=== PATIENT | female | born 1955 | race African-American/Black ===

== ENCOUNTER → 2016-06-02 | Outpatient (CLI) | payer OTHER | LOC: OD 14:16 | PROVIDERS: ATTEND Physician Assistant | DX: M25.532 Pain in left wrist (principal); M24.032 Loose body in left wrist ==

== ENCOUNTER → 2016-07-22 | Outpatient (CLI) | payer OTHER | LOC: WI 10:11 | PROVIDERS: ATTEND Family Medicine | DX: Z12.31 Encounter for screening mammogram for malignant neoplasm of breast (principal) | CPT/HCPCS: 77067; G0202 ==

== ENCOUNTER → 2017-07-13 | Outpatient (CLI) | payer OTHER ==
--- NOTE | 2017-07-13 10:26 | RADIOLOGY REPORT (SQ) ---
EXAM DESCRIPTION: CHEST PA/LATERAL COMPLETED DATE/TIME: 07/13/2017 10:07 am REASON FOR STUDY: COUGH COMPARISON: None. EXAM PARAMETERS: NUMBER OF VIEWS: two views TECHNIQUE: Digital Frontal and Lateral radiographic views of the chest acquired. RADIATION DOSE: NA LIMITATIONS: none FINDINGS: LUNGS AND PLEURA: There is bilateral lower chest pleural thickening with adjacent bandlike lung parenchymal scarring or atelectasis. Few Beto lines at the right base. This could represent acute interstitial edema or chronic pulmonary fibrosis change. Comparison with old films are outsid e films recommended. If no prior chest films are available then consider chest CT for followup MEDIASTINUM AND HILAR STRUCTURES: No masses or contour abnormalities. HEART AND VASCULAR STRUCTURES: Mild cardiomegaly BONES: No acute findings. HARDWARE: None in the chest. OTHER: No other significant finding. IMPRESSION: Bilateral lower lobe interstitial changes with adjacent pleural thickening. If these fi ndings are acute, this could represent mild interstitial edema. These findings are chronic, this cou ld be related to pulmonary fibrosis. TECHNICAL DOCUMENTATION: JOB ID: [id number] [employer]- All Rights Reserved Reading location - IP/workstation name: [facility]-RR
== END ==
LOC: OD 09:55
PROVIDERS: ATTEND Family Medicine
DX: R05 Cough (principal)
CPT/HCPCS: 71046

== ENCOUNTER → 2017-08-15 | Outpatient (CLI) | payer OTHER ==
--- NOTE | 2017-08-15 11:45 | WOMENS IMAGING REPORT ---
EXAM DESCRIPTION: BILAT SCREENING MAMMO W/CAD COMPLETED DATE/TIME: 08/15/2017 9:36 am REASON FOR STUDY: SCREENING MAMMO Z12.31 ENCNTR SCREEN MAMMOGRAM FOR MALIGNANT NEOPLASM OF LUCI COMPARISON: [id number] TECHNIQUE: Standard craniocaudal and mediolateral oblique views of each breast recorded using digita l acquisition. LIMITATIONS: None. FINDINGS: No masses, calcifications or architectural distortion. No areas of suspicion. Read with the assistance of CAD. .[facility] - R2 Cenova Version 1.3 .[facility] - R2 Cenova Version 1.3 .[facility] - R2 Cenova Version 2.4 .[facility] - R2 Cenova Version 2.4 .[facility] - R2 [employer] Operator Version 9.2 IMPRESSION: NORMAL MAMMOGRAM. BIRADS 1. BREAST DENSITY: a. The breasts are almost entirely fatty. BIRAD: 1 NEGATIVE RECOMMENDATION: ROUTINE SCREENING COMMENT: The patient has been notified of the results by letter per SA requirements. Additional no tification policies are in place for contacting patient with suspicious or incomplete findings. Quality ID #[id number]: The [employer] recommends an annual screening mammogram for women aged 40 years or over. This facility utilizes a reminder system to ensure that all patients receive reminder letters, and/or direct phone calls for appointments. This includes reminders for routine scr eening mammograms, diagnostic mammograms, or other Breast Imaging Interventions when appropriate. Th is patient will be placed in the appropriate reminder system. The [employer] ([employer]) has developed recommendations for screening MRI of the breast s in certain patient populations, to be used in conjunction with mammography. Breast MRI surveillanc e may be appropriate for women with more than 20% lifetime risk of developing breast cancer as deter mined by genetic testing, significant family history of the disease, or history of mantle radiation f or Hodgkins Disease. ACR Practice Guidelines 2008. TECHNICAL DOCUMENTATION: FINDING NUMBER: (1) ASSESSMENT: (1) JOB ID: [id number] [email or web address]- All Rights Reserved Reading location - IP/workstation name: [facility]-[email or web address]
== END ==
LOC: WI 09:24
PROVIDERS: ATTEND Family Medicine
DX: Z12.31 Encounter for screening mammogram for malignant neoplasm of breast (principal)
CPT/HCPCS: 77067

== ENCOUNTER → 2019-03-30 | Outpatient (CLI) | payer OTHER | LOC: OD 14:01 | PROVIDERS: ATTEND Nurse Practitioner Family | DX: M25.562 Pain in left knee (principal) | CPT/HCPCS: 36415; 84550 ==

== ENCOUNTER 2019-04-19 10:25 | Observation (INO) | payer OTHER ==
[2019-04-19 11:32] LABS: VENOUS BLOOD BASE EXCESS 1.4 mmol/L; VENOUS BLOOD HCO3 24.4 mmol/L (20-32); VENOUS BLOOD PH 7.47 (7.30-7.42)
[2019-04-19 11:36] LABS: HEMATOCRIT 38.3 % (36.0-47.0); HEMOGLOBIN 12.9 g/dL (12.0-15.5); MEAN CORPUSCULAR HEMOGLOBIN 29.5 pg (27.0-33.4); MEAN CORPUSCULAR HGB CONC 33.6 g/dL (32.0-36.0); MEAN CORPUSCULAR VOLUME 88 fl (80-97); PLATELET COUNT 222 10^3/uL (150-450); RED BLOOD COUNT 4.37 10^6/uL (3.72-5.28); RED CELL DISTRIBUTION WIDTH 14.8 % (11.5-14.0); WHITE BLOOD COUNT 20.3 10^3/uL (4.0-10.5)
[2019-04-19 11:47] LABS: INTERNATIONAL RATION (INR) 1.41; PROTHROMBIN TIME 17.4 SEC (11.4-15.4)
[2019-04-19 11:52] LABS: ALBUMIN 3.6 g/dL (3.5-5.0); ALKALINE PHOSPHATASE 83 U/L (38-126); ANION GAP 13 (5-19); ASPARTATE AMINO TRANSFERASE 34 U/L (14-36); BILIRUBIN,DIRECT 1.2 mg/dL (0.0-0.4); BILIRUBIN,TOTAL 2.1 mg/dL (0.2-1.3); BLOOD UREA NITROGEN 23 mg/dL (7-20); CALCIUM 9.1 mg/dL (8.4-10.2); CARBON DIOXIDE 25 mmol/L (22-30); CHLORIDE 100 mmol/L (98-107); GLUCOSE 213 mg/dL (75-110); POTASSIUM 3.6 mmol/L (3.6-5.0)
[2019-04-19 12:17] LABS: ABSOLUTE LYMPHOCYTES# (MANUAL) 0.8 10^3/uL (0.5-4.7); ABSOLUTE MONOCYTES # (MANUAL) 1.8 10^3/uL (0.1-1.4); BAND NEUTROPHILS % (MANUAL) 1 % (3-5); BASOPHILS % (MANUAL) 0 % (0-2); EOSINOPHILS % (MANUAL) 0 % (0-6); LYMPHOCYTES % (MANUAL) 4 % (13-45); MONOCYTES % (MANUAL) 9 % (3-13); SEGMENTED NEUTROPHILS % (MAN) 86 % (42-78); TOTAL CELLS COUNTED 100
[2019-04-19 12:18] LABS: ANISOCYTOSIS SLIGHT; PLATELET COMMENT ADEQUATE; PLATELET LARGE PRESENT; POLYCHROMASIA SLIGHT
[2019-04-19 12:19] LABS: HYPOCHROMASIA SLIGHT
[2019-04-19] MEDS ORDERED: KETOROLAC TROMETHAMINE INJ/PF 30 MG/1 ML SDV IV ONE (12:24)
[2019-04-19] MEDS ORDERED: METHYLPREDNISOLONE INJ 125 MG/2 ML SDV IV ONE (12:24)
[2019-04-19] MEDS ORDERED: NORMAL SALINE 1000 ML 1,000 ML IV ONE (12:24)
[2019-04-19] MEDS ORDERED: IPRATROPIUM/ALBUTEROL 0.5-2.5 MG/3 ML AMPUL NEB ONE (12:25)
[2019-04-19 12:39] LABS: CREATINE KINASE 324 U/L (30-135)
--- NOTE | 2019-04-19 13:02 | ER Document Report ---
Entered by MIRELA NAIR SCRIBE 04/19/19 1221 Acting as scribe for:DALIA GALO MD ED General - General Chief Complaint: Shortness Of Breath Stated Complaint: FEVER Time Seen by Provider: 04/19/19 12:14 Mode of Arrival: Medic Information source: Patient Notes: This 64 year old female patient brought in by EMS from [facility] presents to the ED today with complaints of shortness of breath and flu-like symptoms for the past x2 days. Patient received tylenol and 1 DuoNeb treatment at [facility] for her symptoms around 9:00 AM prior to EMS arrival. Patient notes that the DuoNeb helped her breathing. Patient reports a productive cough, fever, and body aches. Patient states that she has reproducible chest pain when she coughs and brings up "tinges of blood" in her sputum. Patient denies receiving a flu shot this year. TRAVEL OUTSIDE OF THE [place] IN LAST 30 DAYS: No - Related Data Allergies/Adverse Reactions: No Known Allergies Allergy (Verified 04/19/19 12:22) Past Medical History - General Information source: Patient - Social History Smoking Status: Unknown if Ever Smoked Cigarette use (# per day): No Chew tobacco use (# tins/day): No Smoking Education Provided: No Frequency of alcohol use: None Drug Abuse: None Family History: Reviewed & Not Pertinent Patient has suicidal ideation: No Patient has homicidal ideation: No Past Surgical History: Reports: Hx Hysterectomy Review of Systems - Review of Systems Constitutional: See HPI, Fever EENT: No symptoms reported Cardiovascular: See HPI, Chest pain - reproducible Respiratory: See HPI, Cough, Short of breath, Sputum Gastrointestinal: No symptoms reported Genitourinary: No symptoms reported Female Genitourinary: No symptoms reported Musculoskeletal: See HPI, Other - Body aches Skin: No symptoms reported Hematologic/Lymphatic: No symptoms reported Neurological/Psychological: No symptoms reported -: Yes All other systems reviewed and negative Physical Exam - Vital signs Vitals: Pulse Ox 100 04/19/19 10:30 Interpretation: Normal - General General appearance: Alert In distress: None - HEENT Head: Normocephalic, Atraumatic Eyes: Normal Pupils: PERRL Sinus: Other - Congestion Nasal: Clear rhinorrhea - Respiratory Respiratory status: Tachypnea Chest status: Nontender Breath sounds: Rhonchi - worse in L lung, Wheezing - worse in L lung Chest palpation: Normal - Cardiovascular Rhythm: Regular Heart sounds: Normal auscultation Murmur: No - Abdominal Inspection: Normal Distension: No distension Bowel sounds: Normal Tenderness: Nontender Organomegaly: No organomegaly - Back Back: Normal, Nontender - Extremities General upper extremity: Normal inspection General lower extremity: Normal inspection - Neurological Neuro grossly intact: Yes - Psychological Associated symptoms: Normal affect, Normal mood - Skin Skin Temperature: Warm Skin Moisture: Dry Skin Color: Normal Course - Re-evaluation Re-evalutation: 04/19/19 13:55 The patient states her breathing feels better with the nebulizer treatments. - Vital Signs Vital signs: Temp Pulse Resp BP Pulse Ox 98.4 F 22 H 122/67 100 04/19/19 13:25 04/19/19 14:46 04/19/19 14:46 04/19/19 14:46 - Laboratory Result Diagrams: 04/19/19 11:05 04/19/19 11:05 Laboratory results interpreted by me: 04/19/19 04/19/19 04/19/19 10:51 11:05 11:05 WBC 20.3 H RDW 14.8 H Seg Neuts % (Manual) 86 H Band Neutrophils % 1 L Lymphocytes % (Manual) 4 L Abs Neuts (Manual) 17.7 H Abs Monocytes (Manual) 1.8 H PT 17.4 H VBG pH VBG pCO2 BUN Creatinine Est GFR ( Amer) Est GFR (MDRD) Non-Af Glucose POC Glucose 220 H Hemoglobin A1c % Total Bilirubin Direct Bilirubin Creatine Kinase 04/19/19 04/19/19 04/19/19 11:05 11:05 11:05 WBC RDW Seg Neuts % (Manual) Band Neutrophils % Lymphocytes % (Manual) Abs Neuts (Manual) Abs Monocytes (Manual) PT VBG pH 7.47 H VBG pCO2 34.0 L BUN 23 H Creatinine 1.32 H Est GFR ( Amer) 49 L Est GFR (MDRD) Non-Af 41 L Glucose 213 H POC Glucose Hemoglobin A1c % Total Bilirubin 2.1 H Direct Bilirubin 1.2 H Creatine Kinase 324 H 04/19/19 11:05 WBC RDW Seg Neuts % (Manual) Band Neutrophils % Lymphocytes % (Manual) Abs Neuts (Manual) Abs Monocytes (Manual) PT VBG pH VBG pCO2 BUN Creatinine Est GFR ( Amer) Est GFR (MDRD) Non-Af Glucose POC Glucose Hemoglobin A1c % 6.7 H Total Bilirubin Direct Bilirubin Creatine Kinase - Diagnostic Test Radiology reviewed: Image reviewed, Reports reviewed - CXR--Extensive opacity of the left lower lobe - EKG Interpretation by Me EKG shows normal: Sinus rhythm, Chase, Intervals, QRS Complexes, ST-T Waves Rate: Tachycardia - 125 Rhythm: A.Flutter - Ventricular bigeminy P Waves: LAE Discharge - Discharge Clinical Impression: Tachycardia, Extrasystoles bigeminal Pneumonia Qualifiers: Pneumonia type: due to unspecified organism Laterality: left Lung location: lower lobe of lung Qualified Code(s): J18.9 - Pneumonia, unspecified organism Fever Qualifiers: Fever type: unspecified Qualified Code(s): R50.9 - Fever, unspecified Leukocytosis Qualifiers: Leukocytosis type: unspecified Qualified Code(s): D72.829 - Elevated white blood cell count, unspecified Condition: Good Disposition: ADMITTED INPATIENT Admitting Provider: Jerica (Hospitalist) Unit Admitted: Telemetry Scribe Attestation: 04/19/19 13:43 I personally performed the services described in the documentation, reviewed and edited the documentation which was dictated to the scribe in my presence, and it accurately records my words and actions. I personally performed the services described in the documentation, reviewed and edited the documentation which was dictated to the scribe in my presence, and it accurately records my words and actions.
--- NOTE | 2019-04-19 13:06 | RADIOLOGY REPORT (SQ) ---
EXAM DESCRIPTION: CHEST 2 VIEWS COMPLETED DATE/TIME: 04/19/2019 12:54 pm REASON FOR STUDY: Flulike illness, bloody sputum, wheezes rhonchi. COMPARISON: None. EXAM PARAMETERS: NUMBER OF VIEWS: two views TECHNIQUE: Digital Frontal and Lateral radiographic views of the chest acquired. RADIATION DOSE: NA LIMITATIONS: none FINDINGS: LUNGS AND PLEURA: Extensive heterogeneous opacity of the left lower lobe. MEDIASTINUM AND HILAR STRUCTURES: No masses or contour abnormalities. HEART AND VASCULAR STRUCTURES: Cardiomegaly. BONES: No acute findings. HARDWARE: None in the chest. OTHER: No other significant finding. IMPRESSION: Extensive heterogeneous opacity of the left lower lobe, concerning for infection or aspi ration. Recommend follow-up radiographs in 6 to 8 weeks to ensure complete radiographic resolution. TECHNICAL DOCUMENTATION: JOB ID: [id number] [employer]- All Rights Reserved Reading location - IP/workstation name: [email or web address]
[2019-04-19] MEDS ORDERED: RINGERS SOLUTION,LACTATED 1,000 ML IV ONE (13:42)
[2019-04-19] MEDS ORDERED: LEVOFLOXACIN 750 MG/D5W RTU 750 MG/150 ML RTUPB IV ONE (13:52)
[2019-04-19 14:27] LABS: A TYPE INFLUENZA AG NEGATIVE (NEGATIVE); B INFLUENZA AG NEGATIVE (NEGATIVE)
[2019-04-19] MEDS ORDERED: MAGNESIUM HYDROXIDE SUSP 30 ML UDCUP PO PRN (16:10)
[2019-04-19] MEDS ORDERED: PROMETHAZINE HCL INJ 25 MG/1 ML VIAL IV PRN (16:10)
[2019-04-19] MEDS ORDERED: TEMAZEPAM 7.5 MG CAPSULE PO PRN (16:10)
--- NOTE | 2019-04-19 16:24 | EKG REPORT ---
SEVERITY:- ABNORMAL ECG - SINUS TACHYCARDIA VENTRICULAR BIGEMINY PROBABLE LEFT ATRIAL ABNORMALITY : Confirmed by: Jenny Guadarrama MD 19-Apr-2019 16:24:07
[2019-04-19] MEDS ORDERED: GLUCAGON,HUMAN RECOMB 1 MG INJ IM PRN (16:29)
[2019-04-19] MEDS ORDERED: DEXTROSE 50%-WATER 25 GM/50 ML DISP.SYRIN IV PRN ×2 (16:29)
[2019-04-19] MEDS ORDERED: DEXTROSE 40% GEL 15 GM TUBE PO PRN ×2 (16:29)
--- NOTE | 2019-04-19 16:34 | PDOC H&P ---
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 Stating that at her work several patient has had diarrhea. Denies any chest pain, abdominal pain, vomiting, lightheadedness, numbness, tingling, orthopnea, PND, weight changes, lower extremity edema. Past Medical History Endocrine Medical History: Reports: Diabetes Mellitus Type 2 Past Surgical History Past Surgical History: Reports: Hysterectomy Social History Smoking Status: Unknown if Ever Smoked Family History Family History: Reviewed & Not Pertinent Parental Family History Reviewed: Yes Children Family History Reviewed: Yes Sibling(s) Family History Reviewed.: Yes Medication/Allergy Allergies/Adverse Reactions: No Known Allergies Allergy (Verified 04/19/19 12:22) Physical Exam Vital Signs: Temp Pulse Resp BP Pulse Ox 98.4 F 22 H 122/67 100 04/19/19 13:25 04/19/19 14:46 04/19/19 14:46 04/19/19 14:46 Intake & Output 04/18/19 04/19/19 04/20/19 06:59 06:59 06:59 Intake Total 1000 Balance 1000 Weight 99 kg General appearance: PRESENT: no acute distress, morbidly obese, well-developed, well-nourished Respiratory exam: PRESENT: crackles - Left lung base.. ABSENT: rales, rhonchi, wheezes Pulses: PRESENT: normal carotid pulses, normal radial pulses, normal dorsalis pedis pul, +2 pedal pulses bilateral Vascular exam: PRESENT: normal capillary refill GI/Abdominal exam: PRESENT: normal bowel sounds, soft. ABSENT: distended, guarding, mass, organolmegaly, rebound, tenderness Extremities exam: PRESENT: full ROM. ABSENT: calf tenderness, clubbing, pedal edema Neurological exam: PRESENT: alert, awake, oriented to person, oriented to place, oriented to time, oriented to situation, CN II-XII grossly intact. ABSENT: motor sensory deficit Skin exam: PRESENT: dry, intact, warm. ABSENT: cyanosis, rash Results Laboratory Results: 04/19/19 11:05 04/19/19 11:05 04/19/19 04/19/19 04/19/19 11:05 11:05 11:05 WBC 20.3 H RBC 4.37 Hgb 12.9 Hct 38.3 MCV 88 MCH 29.5 MCHC 33.6 RDW 14.8 H Plt Count 222 Seg Neutrophils % Not Reportable VBG pH 7.47 H VBG pCO2 34.0 L VBG HCO3 24.4 VBG Base Excess 1.4 Sodium 138.2 Potassium 3.6 Chloride 100 Carbon Dioxide 25 Anion Gap 13 BUN 23 H Creatinine 1.32 H Est GFR ( Amer) 49 L Glucose 213 H Lactic Acid Calcium 9.1 Total Bilirubin 2.1 H AST 34 Alkaline Phosphatase 83 Total Protein 7.0 Albumin 3.6 04/19/19 04/19/19 11:05 14:25 WBC RBC Hgb Hct MCV MCH MCHC RDW Plt Count Seg Neutrophils % VBG pH VBG pCO2 VBG HCO3 VBG Base Excess Sodium Potassium Chloride Carbon Dioxide Anion Gap BUN Creatinine Est GFR ( Amer) Glucose Lactic Acid 1.5 1.9 Calcium Total Bilirubin AST Alkaline Phosphatase Total Protein Albumin 04/19/19 04/19/19 11:05 11:05 Creatine Kinase 324 H Troponin I < 0.012 Impressions: Chest X-Ray 04/19/19 12:25 IMPRESSION: Extensive heterogeneous opacity of the left lower lobe, concerning for infection or aspiration. Recommend follow-up radiographs in 6 to 8 weeks to ensure complete radiographic resolution. Assessment and Plan - Diagnosis (1) Pneumonia Qualifiers: Pneumonia type: due to unspecified organism Laterality: left Lung location: lower lobe of lung Qualified Code(s): J18.9 - Pneumonia, unspecified organism Is this a current diagnosis for this admission?: Yes Plan: Presenting with tachypnea, leukocytosis, neutrophilia and bandemia. Chest x-ray left lower lobe opacity. Likely healthcare associated pneumonia. Patient works at the fci. We will start on empiric broad-spectrum IV antibiotics to cover gram-negative rods, and gram-positive cocci including MRSA. (2) Obesity (BMI 30.0-34.9) Is this a current diagnosis for this admission?: Yes Plan: BMI 31.3. Diet and lifestyle modification recommended. We will check TSH, T4 and lipid panel. (3) Newly diagnosed diabetes Is this a current diagnosis for this admission?: Yes Plan: Newly diagnosed diabetes. Hemoglobin is 6.7. Admitting diet, sliding scale insulin, Accu-Chek, hypoglycemia protocol. Diabetes occasion. Will discharge on metformin to be uptitrated as tolerated if kidney function improves. (4) KENNY (acute kidney injury) Is this a current diagnosis for this admission?: Yes Plan: Likely due to chronic NSAID abuse (patient has been taking Motrin chronically for knee osteoarthritis), and dehydration caused by recent diarrhea. Cautious volume restriction guided by volume status and electrolytes. Avoid nephrotoxic meds. Monitor and now. Will consult nephrology if no improvement. (5) Tobacco abuse Is this a current diagnosis for this admission?: Yes Plan: Counseled on quitting. NicoDerm patch will be provided. (6) Extrasystoles bigeminal Is this a current diagnosis for this admission?: Yes Plan: Denies any history of palpitation, chest pain, lightheadedness, syncope or pres yncope. Troponins negative. Admit to telemetry. Will consult cardiology if no improvement.
[2019-04-19 16:58] LABS: CHOLESTEROL 108.38 mg/dL (0-200); TRIGLYCERIDES 102 mg/dL (<150)
[2019-04-19 17:09] LABS: DIRECT LDL 62 mg/dL (<100)
[2019-04-19 17:15] LABS: FREE T4 (FREE THYROXINE) 1.77 ng/dL (0.78-2.19)
[2019-04-19 17:29] LABS: THYROID STIMULATING HORMONE 1.72 uIU/mL (0.47-4.68)
[2019-04-19] MEDS: PANTOPRAZOLE SODIUM 40 MG TABLET.DR PO SCH (17:55)
[2019-04-19] MEDS ORDERED: INFLUENZA QUAD (6MOS+) 2019-20 VAC 0.5 ML SYR IM ONE (18:27)
[2019-04-19] MEDS: CEFTRIAXONE 1 GM/D5W RTU 1 GM/50 ML RTUPB IV SCH (18:55)
[2019-04-19] MEDS: NORMAL SALINE 1000 ML 1,000 ML IV PRN (18:56)
[2019-04-19] MEDS: INSULIN LISPRO 100 UNIT/ML 3 ML VIAL SUBCUT SCH (21:14)
[2019-04-19] MEDS: HEPARIN SOD (PORCINE) 5,000 UNIT/ML 1 ML VIAL SUBCUT SCH (21:14)
[2019-04-20 02:13] LABS: APPEARANCE,URINE SLIGHTLY-CLOUDY; BILIRUBIN,URINE NEGATIVE (NEGATIVE); COLOR,URINE YELLOW; GLUCOSE, URINE 150 mg/dL (NEGATIVE); KETONES,URINE NEGATIVE (NEGATIVE); LEUKOCYTE ESTERASE,URINE SMALL (NEGATIVE); NITRITE,URINE NEGATIVE (NEGATIVE); PROTEIN,URINE NEGATIVE (NEGATIVE); URINE SPECIFIC GRAVITY 1.019
[2019-04-20] MEDS: NORMAL SALINE 1000 ML 1,000 ML IV PRN ×2 (03:54→17:22)
[2019-04-20] MEDS: PANTOPRAZOLE SODIUM 40 MG TABLET.DR PO SCH ×2 (05:20→17:21)
[2019-04-20] MEDS: HEPARIN SOD (PORCINE) 5,000 UNIT/ML 1 ML VIAL SUBCUT SCH ×3 (05:20→21:25)
[2019-04-20 06:16] LABS: HEMATOCRIT 35.2 % (36.0-47.0); HEMOGLOBIN 11.8 g/dL (12.0-15.5); MEAN CORPUSCULAR HEMOGLOBIN 29.3 pg (27.0-33.4); MEAN CORPUSCULAR HGB CONC 33.4 g/dL (32.0-36.0); MEAN CORPUSCULAR VOLUME 88 fl (80-97); PLATELET COUNT 207 10^3/uL (150-450); RED BLOOD COUNT 4.01 10^6/uL (3.72-5.28); RED CELL DISTRIBUTION WIDTH 15.1 % (11.5-14.0); WHITE BLOOD COUNT 16.4 10^3/uL (4.0-10.5)
[2019-04-20 06:19] LABS: ALBUMIN 2.9 g/dL (3.5-5.0); ALKALINE PHOSPHATASE 70 U/L (38-126); ANION GAP 10 (5-19); ASPARTATE AMINO TRANSFERASE 24 U/L (14-36); BILIRUBIN,DIRECT 0.5 mg/dL (0.0-0.4); BILIRUBIN,TOTAL 0.7 mg/dL (0.2-1.3); BLOOD UREA NITROGEN 24 mg/dL (7-20); CALCIUM 8.8 mg/dL (8.4-10.2); CARBON DIOXIDE 25 mmol/L (22-30); CHLORIDE 105 mmol/L (98-107); GLUCOSE 250 mg/dL (75-110); POTASSIUM 3.7 mmol/L (3.6-5.0)
[2019-04-20 06:46] LABS: ABSOLUTE LYMPHOCYTES# (MANUAL) 1.1 10^3/uL (0.5-4.7); ABSOLUTE MONOCYTES # (MANUAL) 0.2 10^3/uL (0.1-1.4); BASOPHILS % (MANUAL) 0 % (0-2); EOSINOPHILS % (MANUAL) 0 % (0-6); LYMPHOCYTES % (MANUAL) 7 % (13-45); MONOCYTES % (MANUAL) 1 % (3-13); SEGMENTED NEUTROPHILS % (MAN) 92 % (42-78); TOTAL CELLS COUNTED 100
[2019-04-20 06:48] LABS: OVALOCYTES SLIGHT; PLATELET COMMENT ADEQUATE; POIKILOCYTOSIS SLIGHT; SCHISTOCYTES SLIGHT; TOXIC GRANULATION 1+
[2019-04-20] MEDS: INSULIN LISPRO 100 UNIT/ML 3 ML VIAL SUBCUT SCH ×4 (09:25→21:25)
[2019-04-20] MEDS: LEVOFLOXACIN 500 MG/D5W RTU 500 MG/100 ML RTUPB IV SCH (13:32)
[2019-04-20] MEDS: CEFTRIAXONE 1 GM/D5W RTU 1 GM/50 ML RTUPB IV SCH (17:21)
[2019-04-21] MEDS: HEPARIN SOD (PORCINE) 5,000 UNIT/ML 1 ML VIAL SUBCUT SCH ×3 (05:54→22:22)
[2019-04-21] MEDS: PANTOPRAZOLE SODIUM 40 MG TABLET.DR PO SCH ×2 (05:54→18:31)
[2019-04-21] MEDS: ACETAMINOPHEN 325 MG TABLET PO PRN ×2 (08:16→18:31)
[2019-04-21] MEDS: NORMAL SALINE 1000 ML 1,000 ML IV PRN ×2 (08:17→18:34)
[2019-04-21 09:08] LABS: ALBUMIN 3.1 g/dL (3.5-5.0); ALKALINE PHOSPHATASE 68 U/L (38-126); ANION GAP 8 (5-19); ASPARTATE AMINO TRANSFERASE 36 U/L (14-36); BILIRUBIN,DIRECT 0.3 mg/dL (0.0-0.4); BILIRUBIN,TOTAL 0.5 mg/dL (0.2-1.3); BLOOD UREA NITROGEN 22 mg/dL (7-20); CARBON DIOXIDE 27 mmol/L (22-30); CHLORIDE 109 mmol/L (98-107); GLUCOSE 109 mg/dL (75-110); POTASSIUM 3.6 mmol/L (3.6-5.0); TOTAL PROTEIN 6.2 g/dL (6.3-8.2)
[2019-04-21] MEDS: INSULIN LISPRO 100 UNIT/ML 3 ML VIAL SUBCUT SCH ×4 (09:12→22:20)
[2019-04-21 09:22] LABS: ABSOLUTE LYMPHOCYTES (AUTO) 1.8 10^3/uL (0.5-4.7); ABSOLUTE MONOCYTES (AUTO) 0.9 10^3/uL (0.1-1.4); ABSOLUTE NEUT (AUTO) 13.1 10^3/uL (1.7-8.2); BASOPHILS % (AUTO) 0.3 % (0-2); EOSINOPHILS % (AUTO) 0.1 % (0-6); HEMATOCRIT 35.1 % (36.0-47.0); HEMOGLOBIN 11.8 g/dL (12.0-15.5); LYMPHOCYTES % (AUTO) 11.4 % (13-45); MEAN CORPUSCULAR HEMOGLOBIN 29.2 pg (27.0-33.4); MEAN CORPUSCULAR HGB CONC 33.6 g/dL (32.0-36.0); MEAN CORPUSCULAR VOLUME 87 fl (80-97); MONOCYTES % (AUTO) 5.5 % (3-13); PLATELET COUNT 262 10^3/uL (150-450); RED BLOOD COUNT 4.03 10^6/uL (3.72-5.28); RED CELL DISTRIBUTION WIDTH 15.2 % (11.5-14.0); SEGMENTED NEUTROPHILS % (AUTO) 82.7 % (42-78); TOTAL CELLS COUNTED % (AUTO) 100 %; WHITE BLOOD COUNT 15.8 10^3/uL (4.0-10.5)
--- NOTE | 2019-04-21 11:32 | PDOC PROGRESS REPORT ---
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 Stating that at her work several patient has had diarrhea. Denies any chest pain, abdominal pain, vomiting, lightheadedness, numbness, tingling, orthopnea, PND, weight changes, lower extremity edema. 04/20/2018. No acute events overnight. Still with significant leukocytosis and shortness of breath. Crackles on right lung base. Complaining of productive cough. Denies any chest pain, nausea, vomiting, diarrhea, constipation or any urinary symptoms. Reason For Visit: PNEUMONIA Physical Exam Vital Signs: Temp Pulse Resp BP Pulse Ox 97.8 F 80 18 135/82 H 94 04/21/19 08:00 04/21/19 08:00 04/21/19 08:00 04/21/19 08:00 04/21/19 08:00 Intake & Output 04/20/19 04/21/19 04/22/19 06:59 06:59 06:59 Intake Total 3440 3500 Output Total 500 Balance 2940 3500 Weight 98.6 kg 101.6 kg General appearance: PRESENT: obese Respiratory exam: PRESENT: crackles - RLB. ABSENT: rales, rhonchi, wheezes Cardiovascular exam: PRESENT: RRR. ABSENT: diastolic murmur, rubs, systolic murmur GI/Abdominal exam: PRESENT: normal bowel sounds, soft. ABSENT: distended, guarding, mass, organolmegaly, rebound, tenderness Neurological exam: PRESENT: alert, awake, oriented to person, oriented to place, oriented to time, oriented to situation, CN II-XII grossly intact. ABSENT: motor sensory deficit Results Laboratory Results: 04/21/19 08:09 04/21/19 08:09 04/21/19 04/21/19 08:09 08:09 WBC 15.8 H RBC 4.03 Hgb 11.8 L Hct 35.1 L MCV 87 MCH 29.2 MCHC 33.6 RDW 15.2 H Plt Count 262 Seg Neutrophils % 82.7 H Sodium 143.7 Potassium 3.6 Chloride 109 H Carbon Dioxide 27 Anion Gap 8 BUN 22 H Creatinine 0.85 Est GFR ( Amer) > 60 Glucose 109 Calcium 9.0 Total Bilirubin 0.5 AST 36 Alkaline Phosphatase 68 Total Protein 6.2 L Albumin 3.1 L 04/19/19 11:05 Blood Blood Culture (PCR) - Final Streptococcus Pneumoniae 04/19/19 11:57 Blood Blood Culture (PCR) - Final Streptococcus Pneumoniae 04/19/19 14:50 Sputum Gram Stain - Final 04/19/19 14:50 Sputum Sputum Culture - Final 04/19/19 04/19/19 11:05 11:05 Creatine Kinase 324 H Troponin I < 0.012 Impressions: Chest X-Ray 04/19/19 12:25 IMPRESSION: Extensive heterogeneous opacity of the left lower lobe, concerning for infection or aspiration. Recommend follow-up radiographs in 6 to 8 weeks to ensure complete radiographic resolution. Assessment and Plan - Diagnosis (1) Pneumonia Qualifiers: Pneumonia type: due to unspecified organism Laterality: left Lung location: lower lobe of lung Qualified Code(s): J18.9 - Pneumonia, unspecified organism Is this a current diagnosis for this admission?: Yes Plan: Moderate improvement. Leukocytosis improving. Afebrile. Chest x-ray left lower lobe opacity. Likely healthcare associated pneumonia. Patient works at the long-[employer]. Day 2 IV antibiotics. Day 2 IV ceftriaxone. Day 2 IV levofloxacin. Continue empiric broad-spectrum IV antibiotics to cover gram-negative rods, and gram-positive cocci including MRSA. Blood cultures growing gram-positive cocci in chains. Pending sensitivity. (2) Obesity (BMI 30.0-34.9) Is this a current diagnosis for this admission?: Yes Plan: BMI 31.3. Diet and lifestyle modification recommended. TSH and lipid panel WNL except for low HDL. (3) Newly diagnosed diabetes Is this a current diagnosis for this admission?: Yes Plan: Newly diagnosed diabetes. Hemoglobin is 6.7. Admitting diet, sliding scale insulin, Accu-Chek, hypoglycemia protocol. Diabetes occasion. Will discharge on metformin to be uptitrated as tolerated if kidney function improves. (4) KENNY (acute kidney injury) Is this a current diagnosis for this admission?: Yes Plan: Resolved. Likely due to chronic NSAID abuse (patient has been taking Motrin chronically for knee osteoarthritis), and dehydration caused by recent diarrhea. Cautious volume restriction guided by volume status and electrolytes. Avoid nephrotoxic meds. Monitor and now. Will consult nephrology if no improvement. (5) Tobacco abuse Is this a current diagnosis for this admission?: Yes Plan: Counseled on quitting. NicoDerm patch will be provided. (6) Extrasystoles bigeminal Is this a current diagnosis for this admission?: Yes Plan: Denies any history of palpitation, chest pain, lightheadedness, syncope or presyncope. Troponins negative. Admit to telemetry. Will consult cardiology if no improvement. (7) Diarrhea Qualifiers: Diarrhea type: unspecified type Qualified Code(s): R19.7 - Diarrhea, unspecified Is this a current diagnosis for this admission?: Yes Plan: Resolved. Likely gastroenteritis. Benign abdominal examination.
--- NOTE | 2019-04-21 11:35 | PDOC PROGRESS REPORT ---
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 Stating that at her work several patient has had diarrhea. Denies any chest pain, abdominal pain, vomiting, lightheadedness, numbness, tingling, orthopnea, PND, weight changes, lower extremity edema. 04/20/2018. No acute events overnight. Still with significant leukocytosis and shortness of breath. Crackles on right lung base. Complaining of productive cough. Denies any chest pain, nausea, vomiting, diarrhea, constipation or any urinary symptoms. 04/21/2019. No acute events overnight. Leukocytosis improving. Still complaining of productive cough. Denies any fever, chills, nausea, vomiting, diarrhea, constipation or urinary symptoms Reason For Visit: PNEUMONIA Physical Exam Vital Signs: Temp Pulse Resp BP Pulse Ox 97.8 F 80 18 135/82 H 94 04/21/19 08:00 04/21/19 08:00 04/21/19 08:00 04/21/19 08:00 04/21/19 08:00 Intake & Output 04/20/19 04/21/19 04/22/19 06:59 06:59 06:59 Intake Total 3440 3500 Output Total 500 Balance 2940 3500 Weight 98.6 kg 101.6 kg General appearance: PRESENT: obese Respiratory exam: PRESENT: crackles. ABSENT: rales, rhonchi, wheezes Cardiovascular exam: PRESENT: RRR. ABSENT: diastolic murmur, rubs, systolic murmur GI/Abdominal exam: PRESENT: normal bowel sounds, soft. ABSENT: distended, guarding, mass, organolmegaly, rebound, tenderness Neurological exam: PRESENT: alert, awake, oriented to person, oriented to place, oriented to time, oriented to situation, CN II-XII grossly intact. ABSENT: motor sensory deficit Results Laboratory Results: 04/21/19 08:09 04/21/19 08:09 04/21/19 04/21/19 08:09 08:09 WBC 15.8 H RBC 4.03 Hgb 11.8 L Hct 35.1 L MCV 87 MCH 29.2 MCHC 33.6 RDW 15.2 H Plt Count 262 Seg Neutrophils % 82.7 H Sodium 143.7 Potassium 3.6 Chloride 109 H Carbon Dioxide 27 Anion Gap 8 BUN 22 H Creatinine 0.85 Est GFR ( Amer) > 60 Glucose 109 Calcium 9.0 Total Bilirubin 0.5 AST 36 Alkaline Phosphatase 68 Total Protein 6.2 L Albumin 3.1 L 04/19/19 11:05 Blood Blood Culture (PCR) - Final Streptococcus Pneumoniae 04/19/19 11:57 Blood Blood Culture (PCR) - Final Streptococcus Pneumoniae 04/19/19 14:50 Sputum Gram Stain - Final 04/19/19 14:50 Sputum Sputum Culture - Final 04/19/19 04/19/19 11:05 11:05 Creatine Kinase 324 H Troponin I < 0.012 Impressions: Chest X-Ray 04/19/19 12:25 IMPRESSION: Extensive heterogeneous opacity of the left lower lobe, concerning for infection or aspiration. Recommend follow-up radiographs in 6 to 8 weeks to ensure complete radiographic resolution. Assessment and Plan - Diagnosis (1) Pneumonia Qualifiers: Pneumonia type: due to unspecified organism Laterality: left Lung location: lower lobe of lung Qualified Code(s): J18.9 - Pneumonia, unspecified organism Is this a current diagnosis for this admission?: Yes Plan: Still having significant leukocytosis. Afebrile. Crackles on lung examination. Due to Streptococcus pneumonia. Chest x-ray left lower lobe opacity. Day 3 IV antibiotics. Day 3 IV ceftriaxone. Day 3 IV levofloxacin. Continue empiric broad-spectrum IV antibiotics. Blood culture positive for Streptococcus pneumonia. Pending sensitivity. (2) Obesity (BMI 30.0-34.9) Is this a current diagnosis for this admission?: Yes Plan: BMI 31.3. Diet and lifestyle modification recommended. TSH and lipid panel WNL except for low HDL. (3) Newly diagnosed diabetes Is this a current diagnosis for this admission?: Yes Plan: Controlled. Newly diagnosed diabetes. Hemoglobin is 6.7. Admitting diet, sliding scale insulin, Accu-Chek, hypoglycemia protocol. Diabetes occasion. Will discharge on metformin to be uptitrated as tolerated if kidney function improves. (4) KENNY (acute kidney injury) Is this a current diagnosis for this admission?: Yes Plan: Resolved. Likely due to chronic NSAID abuse (patient has been taking Motrin chronically for knee osteoarthritis), and dehydration caused by recent diarrhea. Cautious volume restriction guided by volume status and electrolytes. Avoid nephrotoxic meds. Monitor and now. Will consult nephrology if no improvement. (5) Tobacco abuse Is this a current diagnosis for this admission?: Yes Plan: Counseled on quitting. NicoDerm patch will be provided. (6) Extrasystoles bigeminal Is this a current diagnosis for this admission?: Yes Plan: Denies any history of palpitation, chest pain, lightheadedness, syncope or presyncope. Troponins negative. Admit to telemetry. Will consult cardiology if no improvement. (7) Diarrhea Qualifiers: Diarrhea type: unspecified type Qualified Code(s): R19.7 - Diarrhea, unspecified Is this a current diagnosis for this admission?: Yes Plan: Resolved. Likely gastroenteritis. Benign abdominal examination.
[2019-04-21] MEDS: LEVOFLOXACIN 500 MG/D5W RTU 500 MG/100 ML RTUPB IV SCH (14:03)
[2019-04-21] MEDS: IPRATROPIUM/ALBUTEROL 0.5-2.5 MG/3 ML AMPUL NEB PRN (14:13)
[2019-04-21] MEDS: CEFTRIAXONE 1 GM/D5W RTU 1 GM/50 ML RTUPB IV SCH (18:33)
[2019-04-21] MEDS: OXYCODONE-ACETAMINOPHEN 5-325 MG TABLET PO PRN (22:23)
[2019-04-22] MEDS: HEPARIN SOD (PORCINE) 5,000 UNIT/ML 1 ML VIAL SUBCUT SCH ×3 (05:50→21:24)
[2019-04-22] MEDS: PANTOPRAZOLE SODIUM 40 MG TABLET.DR PO SCH ×2 (05:50→17:29)
[2019-04-22] MEDS: INSULIN LISPRO 100 UNIT/ML 3 ML VIAL SUBCUT SCH ×4 (08:05→21:27)
[2019-04-22] MEDS: IPRATROPIUM/ALBUTEROL 0.5-2.5 MG/3 ML AMPUL NEB PRN (08:25)
[2019-04-22] MEDS: LEVOFLOXACIN 500 MG/D5W RTU 500 MG/100 ML RTUPB IV SCH (12:33)
--- NOTE | 2019-04-22 15:12 | PDOC PROGRESS REPORT ---
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 Stating that at her work several patient has had diarrhea. Denies any chest pain, abdominal pain, vomiting, lightheadedness, numbness, tingling, orthopnea, PND, weight changes, lower extremity edema. 04/20/2018. No acute events overnight. Still with significant leukocytosis and shortness of breath. Crackles on right lung base. Complaining of productive cough. Denies any chest pain, nausea, vomiting, diarrhea, constipation or any urinary symptoms. 04/21/2019. No acute events overnight. Leukocytosis improving. Still complaining of productive cough. Denies any fever, chills, nausea, vomiting, diarrhea, constipation or urinary symptoms 04/22/2019. No acute events overnight. Patient is having significant leukocytosis and mild dyspnea on exertion and persistent productive cough. Denies any fever, chills, nausea, vomiting, diarrhea, constipation or any urinary symptoms Reason For Visit: PNEUMONIA Physical Exam Vital Signs: Temp Pulse Resp BP Pulse Ox 98.6 F 88 18 138/82 H 97 04/22/19 12:00 04/22/19 14:00 04/22/19 12:00 04/22/19 12:00 04/22/19 12:00 Intake & Output 04/21/19 04/22/19 04/23/19 06:59 06:59 06:59 Intake Total 3550 2250 690 Balance 3550 2250 690 Weight 101.6 kg 105 kg General appearance: PRESENT: mild distress Head exam: PRESENT: atraumatic, normocephalic Respiratory exam: PRESENT: clear to auscultation luke. ABSENT: rales, rhonchi, wheezes Cardiovascular exam: PRESENT: RRR. ABSENT: diastolic murmur, rubs, systolic murmur GI/Abdominal exam: PRESENT: normal bowel sounds, soft. ABSENT: distended, guard ing, mass, organolmegaly, rebound, tenderness Neurological exam: PRESENT: alert, awake, oriented to person, oriented to place, oriented to time, oriented to situation, CN II-XII grossly intact. ABSENT: motor sensory deficit Results Laboratory Results: 04/21/19 08:09 04/21/19 08:09 04/19/19 11:05 Blood Blood Culture (PCR) - Final Streptococcus Pneumoniae 04/19/19 11:05 Blood Blood Culture - Final Streptococcus Pneumoniae 04/19/19 11:57 Blood Blood Culture (PCR) - Final Streptococcus Pneumoniae 04/19/19 11:57 Blood Blood Culture - Final Streptococcus Pneumoniae 04/19/19 04/19/19 11:05 11:05 Creatine Kinase 324 H Troponin I < 0.012 Impressions: Chest X-Ray 04/19/19 12:25 IMPRESSION: Extensive heterogeneous opacity of the left lower lobe, concerning for infection or aspiration. Recommend follow-up radiographs in 6 to 8 weeks to ensure complete radiographic resolution. Assessment and Plan - Diagnosis (1) Pneumonia Qualifiers: Pneumonia type: due to unspecified organism Laterality: left Lung location: lower lobe of lung Qualified Code(s): J18.9 - Pneumonia, unspecified organism Is this a current diagnosis for this admission?: Yes Plan: Still having significant leukocytosis. Persistent productive cough. Afebrile. Benign lung examination. Due to Streptococcus pneumonia pansensitive. Chest x-ray left lower lobe opacity. Day 4 antibiotics. Day 1 p.o. levofloxacin. Received 3 days of IV levofloxacin. Received 3 days of IV ceftriaxone. DC IV antibiotics. Switch to p.o. Continue p.o. antibiotics for another 3 days. Possible discharge home tomorrow. (2) Obesity (BMI 30.0-34.9) Is this a current diagnosis for this admission?: Yes Plan: BMI 31.3. Diet and lifestyle modification recommended. TSH and lipid panel WNL except for low HDL. (3) Newly diagnosed diabetes Is this a current diagnosis for this admission?: Yes Plan: Controlled. Newly diagnosed diabetes. Hemoglobin is 6.7. Admitting diet, sliding scale insulin, Accu-Chek, hypoglycemia protocol. Diabetes occasion. Will discharge on metformin to be uptitrated as tolerated if kidney function improves. (4) KENNY (acute kidney injury) Is this a current diagnosis for this admission?: Yes Plan: Resolved. Likely due to chronic NSAID abuse (patient has been taking Motrin chronically for knee osteoarthritis), and dehydration caused by recent diarrhea. Cautious volume restriction guided by volume status and electrolytes. Avoid nephrotoxic meds. Monitor and now. Will consult nephrology if no improvement. (5) Tobacco abuse Is this a current diagnosis for this admission?: Yes Plan: Counseled on quitting. NicoDerm patch will be provided. (6) Extrasystoles bigeminal Is this a current diagnosis for this admission?: Yes Plan: Denies any history of palpitation, chest pain, lightheadedness, syncope or presyncope. Troponins negative. Admit to telemetry. Will consult cardiology if no improvement. (7) Diarrhea Qualifiers: Diarrhea type: unspecified type Qualified Code(s): R19.7 - Diarrhea, unspecified Is this a current diagnosis for this admission?: Yes Plan: Resolved. Likely gastroenteritis. Benign abdominal examination.
[2019-04-22] MEDS: ACETAMINOPHEN 325 MG TABLET PO PRN (17:29)
[2019-04-22] MEDS: INSULIN GLARGINE,HUM.REC.ANLOG 1,000 UNIT/10 ML VIAL SUBCUT SCH (17:30)
[2019-04-22] MEDS: OXYCODONE-ACETAMINOPHEN 5-325 MG TABLET PO PRN (23:50)
[2019-04-23 02:28] VITALS: BP 148/73
[2019-04-23] MEDS: HEPARIN SOD (PORCINE) 5,000 UNIT/ML 1 ML VIAL SUBCUT SCH (05:34)
[2019-04-23] MEDS: PANTOPRAZOLE SODIUM 40 MG TABLET.DR PO SCH (05:34)
[2019-04-23 06:04] LABS: HEMATOCRIT 34.9 % (36.0-47.0); HEMOGLOBIN 11.8 g/dL (12.0-15.5); MEAN CORPUSCULAR HEMOGLOBIN 29.6 pg (27.0-33.4); MEAN CORPUSCULAR HGB CONC 33.9 g/dL (32.0-36.0); MEAN CORPUSCULAR VOLUME 87 fl (80-97); PLATELET COUNT 292 10^3/uL (150-450); RED CELL DISTRIBUTION WIDTH 15.2 % (11.5-14.0)
[2019-04-23 06:37] LABS: ABSOLUTE LYMPHOCYTES# (MANUAL) 2.1 10^3/uL (0.5-4.7); ABSOLUTE MONOCYTES # (MANUAL) 0.7 10^3/uL (0.1-1.4); EOSINOPHILS % (MANUAL) 1 % (0-6); LYMPHOCYTES % (MANUAL) 21 % (13-45); MONOCYTES % (MANUAL) 7 % (3-13); MYELOCYTES % (MANUAL) 2 % (0); NUCLEATED RED BLOOD CELLS 1 /100 WBC (0); SEGMENTED NEUTROPHILS % (MAN) 69 % (42-78); TOTAL CELLS COUNTED 100
[2019-04-23 06:38] LABS: ANISOCYTOSIS SLIGHT; PLATELET COMMENT ADEQUATE
[2019-04-23] MEDS: INSULIN LISPRO 100 UNIT/ML 3 ML VIAL SUBCUT SCH (09:58)
[2019-04-23] MEDS ORDERED: LEVOFLOXACIN 750 MG TABLET PO SCH (10:00)
[2019-04-23] MEDS: INSULIN GLARGINE,HUM.REC.ANLOG 1,000 UNIT/10 ML VIAL SUBCUT SCH (10:29)
[2019-04-23 14:29] LABS: PATH REVIEW PATHOLOGIST REVIEWED
--- NOTE | 2019-04-24 12:27 | PDOC DISCHARGE SUMMARY ---
Impression - Admit/DC Date/PCP Admission Date/Primary Care Provider: 04/19/19 16:40 Discharge Date: 04/23/19 - Discharge Diagnosis (1) Pneumonia Is this a current diagnosis for this admission?: Yes (2) Obesity (BMI 30.0-34.9) Is this a current diagnosis for this admission?: Yes (3) Newly diagnosed diabetes Is this a current diagnosis for this admission?: Yes (4) KENNY (acute kidney injury) Is this a current diagnosis for this admission?: Yes (5) Tobacco abuse Is this a current diagnosis for this admission?: Yes (6) Extrasystoles bigeminal Is this a current diagnosis for this admission?: Yes (7) Diarrhea Is this a current diagnosis for this admission?: Yes - Additional Information Resuscitation Status: Full Code Discharge Diet: Cardiac, Diabetic Discharge Activity: Activity As Tolerated, Balance Activity w/Rest Referrals: FELICIA YAN DO [NO LOCAL MD] - 05/04/19 4:00 pm Prescriptions: Metformin HCl [Glucophage 500 mg Tablet] 500 mg PO BIDACBS 30 Days #60 tab Levofloxacin [Levaquin] 750 mg PO DAILY 3 Days #3 tablet Home Medications: Cyanocobalamin (Vitamin B-12) [Vitamin B-12] 1,000 mcg PO DAILY 04/19/19 Multivit-Min/Iron/Folic/Lutein [Centrum Silver Women Tablet] 1 each PO DAILY 04/19/19 [place]-3 Fatty Acids/Fish Oil [Fish Oil 1,000 mg Capsule] 2 each PO DAILY 04/19/19 Levofloxacin [Levaquin] 750 mg PO DAILY 3 Days #3 tablet 04/23/19 Metformin HCl [Glucophage 500 mg Tablet] 500 mg PO BIDACBS 30 Days #60 tab 04/23/19 History of Present Illiness History of Present Illness: IDRIS AMADOR is a 64 year old female past medical history of arthritis, tobacco abuse, 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 Stating that at her work several patient has had diarrhea. Denies any chest pain, abdominal pain, vomiting, lightheadedness, numbness, tingling, orthopnea, PND, weight changes, lower extremity edema. Hospital Course Hospital Course: (1) Pneumonia Leukocytosis improved. Cough improved. Afebrile and benign lung examination without discharge. Due to Streptococcus pneumonia pansensitive. Chest x-ray left lower lobe opacity. Received 4 days of IV antibiotics. Received 2 days of p.o. levofloxacin. Received 3 days of IV levofloxacin. Received 3 days of IV ceftriaxone. DC IV antibiotics. Switch to p.o. Was discharged on p.o. levofloxacin for another 3 days. (2) Obesity (BMI 30.0-34.9) BMI 31.3. Diet and lifestyle modification recommended. TSH and lipid panel WNL except for low HDL. (3) Newly diagnosed diabetes Controlled. Newly diagnosed diabetes. Hemoglobin is 6.7. Was a started on diabetic diet, sliding scale insulin, Accu-Chek, hypoglycemia protocol. Diabetic education provided. Was discharged on metformin 500 p.o. twice a day to be uptitrated 2000 mg p.o. twice daily by PCP. Advised to follow-up with PCP. (4) KENNY (acute kidney injury) Resolved. Likely due to chronic NSAID abuse (patient has been taking Motrin chronically for knee osteoarthritis), and dehydration caused by recent diarrhea. Was started on cautious volume restriction guided by volume status and electrolytes. Avoided nephrotoxic meds. Advised to avoid nephrotoxic meds including NSAIDs in the future. (5) Tobacco abuse Counseled on quitting. NicoDerm patch will be provided. (6) Extrasystoles bigeminal Denies any history of palpitation, chest pain, lightheadedness, syncope or presyncope. Troponins negative. Was admitted to telemetry. No recurrence. Was to follow-up with PCP and cardiology. (7) Diarrhea Resolved. Likely gastroenteritis. Benign abdominal examination. Was started on IV fluids. Electrolytes WNL at the time of discharge. Physical Exam Vital Signs: Temp Pulse Resp BP Pulse Ox 99.1 F 82 16 148/73 H 95 04/23/19 08:46 04/23/19 08:46 04/23/19 08:46 04/23/19 08:46 04/23/19 08:46 Intake & Output 04/23/19 04/24/19 04/25/19 06:59 06:59 06:59 Intake Total 2270 Balance 2270 Weight 105 kg General appearance: PRESENT: no acute distress, obese, well-developed, well- nourished Head exam: PRESENT: atraumatic, normocephalic Respiratory exam: PRESENT: clear to auscultation luke. ABSENT: rales, rhonchi, wheezes Cardiovascular exam: PRESENT: RRR. ABSENT: diastolic murmur, rubs, systolic murmur GI/Abdominal exam: PRESENT: normal bowel sounds, soft. ABSENT: distended, guarding, mass, organolmegaly, rebound, tenderness Neurological exam: PRESENT: alert, awake, oriented to person, oriented to place, oriented to time, oriented to situation, CN II-XII grossly intact. ABSENT: motor sensory deficit Results Laboratory Results: WBC 10.0 10^3/uL (4.0-10.5) 04/23/19 05:22 RBC 4.00 10^6/uL (3.72-5.28) 04/23/19 05:22 Hgb 11.8 g/dL (12.0-15.5) L 04/23/19 05:22 Hct 34.9 % (36.0-47.0) L 04/23/19 05:22 MCV 87 fl (80-97) 04/23/19 05:22 MCH 29.6 pg (27.0-33.4) 04/23/19 05:22 MCHC 33.9 g/dL (32.0-36.0) 04/23/19 05:22 RDW 15.2 % (11.5-14.0) H 04/23/19 05:22 Plt Count 292 10^3/uL (150-450) 04/23/19 05:22 Lymph % (Auto) Not Reportable 04/23/19 05:22 [place] % (Auto) Not Reportable 04/23/19 05:22 Eos % (Auto) Not Reportable 04/23/19 05:22 Baso % (Auto) Not Reportable 04/23/19 05:22 Absolute Neuts (auto) Not Reportable 04/23/19 05:22 Absolute Lymphs (auto) Not Reportable 04/23/19 05:22 Absolute Monos (auto) Not Reportable 04/23/19 05:22 Absolute Eos (auto) Not Reportable 04/23/19 05:22 Absolute Basos (auto) Not Reportable 04/23/19 05:22 Total Counted 100 04/23/19 05:22 Seg Neutrophils % Not Reportable 04/23/19 05:22 Seg Neuts % (Manual) 69 % (42-78) 04/23/19 05:22 Band Neutrophils % 1 % (3-5) L 04/19/19 11:05 Lymphocytes % (Manual) 21 % (13-45) 04/23/19 05:22 Monocytes % (Manual) 7 % (3-13) 04/23/19 05:22 Eosinophils % (Manual) 1 % (0-6) 04/23/19 05:22 Basophils % (Manual) Not Reportable 04/23/19 05:22 Myelocytes % 2 % (0) H 04/23/19 05:22 Abs Neuts (Manual) 7.1 10^3/uL (1.7-8.2) 04/23/19 05:22 Abs Lymphs (Manual) 2.1 10^3/uL (0.5-4.7) 04/23/19 05:22 Abs Monocytes (Manual) 0.7 10^3/uL (0.1-1.4) 04/23/19 05:22 Absolute Eos (Manual) 0.1 10^3/uL (0.0-0.6) 04/23/19 05:22 Abs Basophils (Manual) 0.0 10^3/uL (0.0-0.2) 04/23/19 05:22 Nucleated RBCs 1 /100 WBC (0) 04/23/19 05:22 Toxic Granulation 1+ 04/20/19 05:51 Large Platelets PRESENT 04/19/19 11:05 Platelet Comment ADEQUATE 04/23/19 05:22 Polychromasia SLIGHT 04/19/19 11:05 Hypochromasia SLIGHT 04/19/19 11:05 Poikilocytosis SLIGHT 04/20/19 05:51 Anisocytosis SLIGHT 04/23/19 05:22 Ovalocytes SLIGHT 04/20/19 05:51 Schistocytes SLIGHT 04/20/19 05:51 PT 17.4 SEC (11.4-15.4) H 04/19/19 11:05 INR 1.41 04/19/19 11:05 VBG pH 7.47 (7.30-7.42) H 04/19/19 11:05 VBG pCO2 34.0 mmHg (35-63) L 04/19/19 11:05 VBG HCO3 24.4 mmol/L (20-32) 04/19/19 11:05 VBG Base Excess 1.4 mmol/L 04/19/19 11:05 Sodium 143.7 mmol/L (137-145) 04/21/19 08:09 Potassium 3.6 mmol/L (3.6-5.0) 04/21/19 08:09 Chloride 109 mmol/L (98-107) H 04/21/19 08:09 Carbon Dioxide 27 mmol/L (22-30) 04/21/19 08:09 Anion Gap 8 (5-19) 04/21/19 08:09 BUN 22 mg/dL (7-20) H 04/21/19 08:09 Creatinine 0.85 mg/dL (0.52-1.25) 04/21/19 08:09 Est GFR ( Amer) > 60 (>60) 04/21/19 08:09 Est GFR (MDRD) Non-Af > 60 (>60) 04/21/19 08:09 Glucose 109 mg/dL (75-110) 04/21/19 08:09 POC Glucose 132 mg/dL (70-110) H 04/23/19 08:12 Hemoglobin A1c % 6.7 % (4.7-6.0) H 04/19/19 11:05 Lactic Acid 1.5 mmol/L (0.7-2.1) 04/19/19 17:42 Calcium 9.0 mg/dL (8.4-10.2) 04/21/19 08:09 Magnesium 2.2 mg/dL (1.6-2.3) 04/20/19 05:51 Total Bilirubin 0.5 mg/dL (0.2-1.3) 04/21/19 08:09 Direct Bilirubin 0.3 mg/dL (0.0-0.4) 04/21/19 08:09 Neonat Total Bilirubin Not Reportable 04/21/19 08:09 Neonat Direct Bilirubin Not Reportable 04/21/19 08:09 Neonat Indirect Bili Not Reportable 04/21/19 08:09 AST 36 U/L (14-36) 04/21/19 08:09 ALT 35 U/L (<35) 04/21/19 08:09 Alkaline Phosphatase 68 U/L (38-126) 04/21/19 08:09 Creatine Kinase 324 U/L (30-135) H 04/19/19 11:05 Troponin I < 0.012 ng/mL 04/19/19 11:05 Total Protein 6.2 g/dL (6.3-8.2) L 04/21/19 08:09 Albumin 3.1 g/dL (3.5-5.0) L 04/21/19 08:09 Triglycerides 102 mg/dL (<150) 04/19/19 10:28 Cholesterol 108.38 mg/dL (0-200) 04/19/19 10:28 LDL Cholesterol Direct 62 mg/dL (<100) 04/19/19 10:28 VLDL Cholesterol 20.0 mg/dL (10-31) 04/19/19 10:28 HDL Cholesterol 23 mg/dL (>40) L 04/19/19 10:28 TSH 1.72 uIU/mL (0.47-4.68) 04/19/19 10:28 Free T4 1.77 ng/dL (0.78-2.19) 04/19/19 10:28 Urine Color YELLOW 04/20/19 01:56 Urine Appearance SLIGHTLY-CLOUDY 04/20/19 01:56 Urine pH 6.0 (5.0-9.0) 04/20/19 01:56 Ur Specific [place] 1.019 04/20/19 01:56 Urine Protein NEGATIVE mg/dL (NEGATIVE) 04/20/19 01:56 Urine Glucose (UA) 150 mg/dL (NEGATIVE) H 04/20/19 01:56 Urine Ketones NEGATIVE mg/dL (NEGATIVE) 04/20/19 01:56 Urine Blood NEGATIVE (NEGATIVE) 04/20/19 01:56 Urine Nitrite NEGATIVE (NEGATIVE) 04/20/19 01:56 Urine Bilirubin NEGATIVE (NEGATIVE) 04/20/19 01:56 Urine Urobilinogen 4.0 mg/dL (<2.0) H 04/20/19 01:56 Ur Leukocyte Esterase SMALL (NEGATIVE) H 04/20/19 01:56 Urine WBC (Auto) 3 /HPF 04/20/19 01:56 Urine RBC (Auto) 1 /HPF 04/20/19 01:56 Urine Bacteria (Auto) TRACE /HPF 04/20/19 01:56 Squamous Epi Cells Auto 2 /HPF 04/20/19 01:56 Urine Mucus (Auto) RARE /LPF 04/20/19 01:56 Urine Ascorbic Acid 20 (NEGATIVE) H 04/20/19 01:56 Influenza A (Rapid) NEGATIVE (NEGATIVE) 04/19/19 14:00 Influenza B (Rapid) NEGATIVE (NEGATIVE) 04/19/19 14:00 Slides for Path Review PATHOLOGIST REVIEWED 04/23/19 05:22 04/19/19 11:05 Troponin I < 0.012 Impressions: Chest X-Ray 04/19/19 12:25 IMPRESSION: Extensive heterogeneous opacity of the left lower lobe, concerning for infection or aspiration. Recommend follow-up radiographs in 6 to 8 weeks to ensure complete radiographic resolution. Stroke Is this a Stroke Patient?: No Acute Heart Failure - Is this a Heart Failure Patient?: No
== END 2019-04-23 11:30 | disposition home or self-care (01) ==
LOC: ER 10:25 → INTOOBSV 16:40 → EH 16:40 → 5 18:08
PROVIDERS: ADMIT Internal Medicine; ATTEND Internal Medicine
DX: J13 Pneumonia due to Streptococcus pneumoniae (principal); E66.01 Morbid (severe) obesity due to excess calories; Z68.31 Body mass index [BMI] 31.0-31.9, adult; E11.9 Type 2 diabetes mellitus without complications; N17.9 Acute kidney failure, unspecified; I49.49 Other premature depolarization; R19.7 Diarrhea, unspecified; Z72.0 Tobacco use; M17.10 Unilateral primary osteoarthritis, unspecified knee; Z79.1 Long term (current) use of non-steroidal anti-inflammatories (NSAID); Z23 Encounter for immunization
CPT/HCPCS: 93005; 94640 ×3; 99285; 96361; 96375; 96365; 96366; 36415 ×4; 87040; 84439; 87205; 82962 ×5; 82550; 83605; 83735; 84443; 85025 ×4; 85610; 87077; 80053 ×3; 81001; 84484; 87186; 83036; 82803; 80061; 87804; 87150 ×26; 71046; 90686; 93010; G0378 ×6; J1956 ×4; J1815 ×5; J1644 ×5; J2930; J1885; J7030 ×3; J7120; J0696 ×3; J7620 ×3; J3490 ×5; 87070; 90471; G0008

== ENCOUNTER → 2019-06-08 | Outpatient (CLI) | payer OTHER ==
--- NOTE | 2019-06-08 14:23 | RADIOLOGY REPORT (SQ) ---
EXAM DESCRIPTION: CHEST PA/LATERAL COMPLETED DATE/TIME: 06/08/2019 10:36 am REASON FOR STUDY: PNEUMONIA, UNSPECIFIED ORGANISM COMPARISON: 2019 TECHNIQUE: Frontal and lateral radiographic views of the chest acquired. NUMBER OF VIEWS: Two view. LIMITATIONS: None. FINDINGS: LUNGS AND PLEURA: Predominantly linear bandlike areas of subsegmental atelectasis or scarr ing in the bases. Upper lung gonzalez are clear. MEDIASTINUM AND HILAR STRUCTURES: No masses or contour abnormalities. HEART AND VASCULAR STRUCTURES: Heart normal size. No evidence for failure. BONES: No acute findings. HARDWARE: None in the chest. OTHER: No other significant finding. IMPRESSION: As above. Bibasilar areas of subsegmental atelectasis/ scar. TECHNICAL DOCUMENTATION: JOB ID: [id number] 2010 [employer]- All Rights Reserved Reading location - IP/workstation name: [email or web address]
== END ==
LOC: OD 10:26
PROVIDERS: ATTEND Family Medicine
DX: J18.9 Pneumonia, unspecified organism (principal)
CPT/HCPCS: 71046